=== PATIENT | male | born 1975 | race Caucasian/White ===

== ENCOUNTER 2021-08-04 10:43 | Inpatient (IN) | payer OTHER ==
[2021-08-04] MEDS ORDERED: chlordiazePOXIDE HCL 25 MG CAPSULE PO PRN (11:38)
[2021-08-04] MEDS ORDERED: ACETAMINOPHEN 325 MG TABLET (FP) PO PRN ×2 (11:38)
[2021-08-04] MEDS ORDERED: MENTHOL/PHENOL 1 EACH UD MM PRN (11:38)
[2021-08-04] MEDS ORDERED: MAGNESIUM HYDROX 2400MG/30ML ORAL SUSPENSION 30 ML CUP PO PRN (11:38)
[2021-08-04] MEDS ORDERED: MAGNESIUM CITRATE 300 ML BOTTLE PO PRN (11:38)
[2021-08-04] MEDS ORDERED: BISMUTH SUBSALICYLATE 262 MG/15 ML BTL PO PRN (11:38)
[2021-08-04] MEDS ORDERED: NICOTINE 10 MG CARTRIDGE (INHALER) IH PRN (11:38)
[2021-08-04] MEDS ORDERED: MAG HYDROX/AL HYDROX/SIMETH 30 ML UNIT-DOSE CUP PO PRN (11:38)
[2021-08-04] MEDS ORDERED: ONDANSETRON *ODT* 4 MG TABLET SL PRN (11:38)
[2021-08-04 12:15] VITALS: BMI 29.6
[2021-08-04] MEDS: PRENATAL VITAMINS W/ FOLIC ACID TABLET (FP) PO SCH (13:18)
[2021-08-04] MEDS: hydrOXYzine PAMOATE 25 MG CAPSULE (FP) PO SCH ×3 (13:18→22:21)
[2021-08-04] MEDS: METHOCARBAMOL 500 MG TABLET PO PRN (13:18)
[2021-08-04] MEDS: NICOTINE 21 MG/24 HOURS TOPICAL PATCH TD SCH (13:21)
[2021-08-04 17:41] LABS: ALBUMIN 3.5 g/dl (3.4-5.0); BLOOD UREA NITROGEN 14.2 mg/dL (7-18); CALCIUM 8.7 mg/dL (8.5-10.1)
[2021-08-04 17:44] LABS: CREATININE 1.3 mg/dL (0.55-1.3)
[2021-08-04 17:46] LABS: BILIRUBIN,TOTAL 0.4 mg/dL (0.2-1); TOT PROT 7.8 g/dl (6.4-8.2)
[2021-08-04] MEDS: chlordiazePOXIDE HCL 25 MG CAPSULE PO SCH ×2 (17:54→22:21)
[2021-08-04 18:03] LABS: HEMATOCRIT 41.9 % (35.4-49); MCH 30.1 pg (25.7-33.7); MCHC 33.4 g/dl (32.0-35.9); MEAN PLT VOLUME 8.3 fl (7.5-11.1); PLATELET COUNT 237 10^3/uL (134-434); RBC 4.66 M/mm3 (4.00-5.60); RDW 13.4 % (11.9-15.9); WHITE BLOOD COUNT 7.4 K/mm3 (4.0-10.0)
[2021-08-04] MEDS ORDERED: SUVOREXANT 10 MG TABLET PO PRN (22:00)
[2021-08-04] MEDS ORDERED: MELATONIN 5 MG TABLETS PO SCH (22:00)
[2021-08-04] MEDS: THIAMINE HCL 100 MG TABLET (FP) PO SCH (22:20)
[2021-08-05] MEDS: chlordiazePOXIDE HCL 25 MG CAPSULE PO SCH ×2 (06:48→10:50)
[2021-08-05] MEDS: hydrOXYzine PAMOATE 25 MG CAPSULE (FP) PO SCH (06:48)
[2021-08-05] MEDS ORDERED: methaDONE HCL 10 MG TABLET PO SCH (09:15)
[2021-08-05] MEDS ORDERED: methaDONE HCL 40 MG DISPERSABLE TABLET ONE (09:35)
[2021-08-05] MEDS ORDERED: methaDONE HCL 10 MG TABLET ONE (09:35)
[2021-08-05] MEDS: IBUPROFEN 400 MG TABLET (FP) PO PRN (10:36)
[2021-08-05] MEDS: METHOCARBAMOL 500 MG TABLET PO PRN (10:36)
[2021-08-05] MEDS: PRENATAL VITAMINS W/ FOLIC ACID TABLET (FP) PO SCH (10:36)
[2021-08-05] MEDS: NICOTINE 21 MG/24 HOURS TOPICAL PATCH TD SCH (10:50)
[2021-08-05] MEDS ORDERED: LORazepam 1 MG TABLET PO PRN (13:18)
[2021-08-05] MEDS: MINERAL OIL/PETROLAT/WATER TOPICAL CREAM 113 GM JAR TP SCH ×2 (15:33→23:16)
[2021-08-05] MEDS: LORazepam 2 MG TABLET PO SCH ×2 (18:29→23:14)
[2021-08-05] MEDS: THIAMINE HCL 100 MG TABLET (FP) PO SCH (23:14)
[2021-08-06] MEDS ORDERED: methaDONE HCL 10 MG TABLET ONE (03:57)
[2021-08-06] MEDS ORDERED: methaDONE HCL 40 MG DISPERSABLE TABLET ONE (03:58)
[2021-08-06] MEDS ORDERED: chlordiazePOXIDE HCL 25 MG CAPSULE PO SCH (05:00)
[2021-08-06] MEDS: LORazepam 2 MG TABLET PO SCH ×4 (05:17→22:29)
[2021-08-06] MEDS: METHOCARBAMOL 500 MG TABLET PO PRN (05:18)
[2021-08-06] MEDS: PRENATAL VITAMINS W/ FOLIC ACID TABLET (FP) PO SCH (10:21)
[2021-08-06] MEDS: NICOTINE 21 MG/24 HOURS TOPICAL PATCH TD SCH (10:22)
[2021-08-06] MEDS: MINERAL OIL/PETROLAT/WATER TOPICAL CREAM 113 GM JAR TP SCH (10:23)
[2021-08-06 11:26] LABS: SGOT/AST 87 U/L (15-37); SGPT/ALT 151 U/L (13-61)
[2021-08-06] MEDS: THIAMINE HCL 100 MG TABLET (FP) PO SCH (22:29)
[2021-08-06] MEDS: IBUPROFEN 400 MG TABLET (FP) PO PRN (22:29)
[2021-08-07] MEDS ORDERED: chlordiazePOXIDE HCL 10 MG CAPSULE PO PRN
[2021-08-07] MEDS: MINERAL OIL/PETROLAT/WATER TOPICAL CREAM 113 GM JAR TP SCH ×3 (00:56→22:20)
[2021-08-07] MEDS ORDERED: methaDONE HCL 10 MG TABLET ONE (04:21)
[2021-08-07] MEDS ORDERED: methaDONE HCL 40 MG DISPERSABLE TABLET ONE (04:21)
[2021-08-07] MEDS ORDERED: chlordiazePOXIDE HCL 10 MG CAPSULE PO SCH (05:00)
[2021-08-07] MEDS: LORazepam 1 MG TABLET PO SCH ×4 (06:35→23:21)
[2021-08-07 10:07] LABS: SARS-CoV-2 NAA Not Detected (Not Detected)
[2021-08-07] MEDS: PRENATAL VITAMINS W/ FOLIC ACID TABLET (FP) PO SCH (10:54)
[2021-08-07] MEDS: METHOCARBAMOL 500 MG TABLET PO PRN ×2 (10:54→19:25)
[2021-08-07] MEDS: NICOTINE 21 MG/24 HOURS TOPICAL PATCH TD SCH (10:55)
[2021-08-07] MEDS: THIAMINE HCL 100 MG TABLET (FP) PO SCH (22:21)
[2021-08-07] MEDS: IBUPROFEN 400 MG TABLET (FP) PO PRN (23:23)
[2021-08-08] MEDS ORDERED: LORazepam 0.5 MG TABLET PO PRN
[2021-08-08] MEDS ORDERED: methaDONE HCL 10 MG TABLET ONE (04:12)
[2021-08-08] MEDS ORDERED: methaDONE HCL 40 MG DISPERSABLE TABLET ONE (04:13)
[2021-08-08] MEDS ORDERED: chlordiazePOXIDE HCL 10 MG CAPSULE PO SCH (05:00)
[2021-08-08] MEDS: LORazepam 0.5 MG TABLET PO SCH ×4 (05:50→23:36)
[2021-08-08] MEDS: PRENATAL VITAMINS W/ FOLIC ACID TABLET (FP) PO SCH (10:36)
[2021-08-08] MEDS: MINERAL OIL/PETROLAT/WATER TOPICAL CREAM 113 GM JAR TP SCH ×2 (10:36→23:34)
[2021-08-08] MEDS: NICOTINE 21 MG/24 HOURS TOPICAL PATCH TD SCH (10:36)
[2021-08-08] MEDS: THIAMINE HCL 100 MG TABLET (FP) PO SCH (23:35)
[2021-08-08] MEDS: LOPERAMIDE HCL 2 MG CAPSULE PO PRN (23:39)
[2021-08-09] MEDS ORDERED: methaDONE HCL 10 MG TABLET ONE (04:50)
[2021-08-09] MEDS ORDERED: methaDONE HCL 40 MG DISPERSABLE TABLET ONE (04:50)
[2021-08-09] MEDS ORDERED: chlordiazePOXIDE HCL 10 MG CAPSULE PO ONE (05:00)
[2021-08-09] MEDS ORDERED: LORazepam 0.5 MG TABLET PO ONE (05:00)
[2021-08-09] MEDS: LOPERAMIDE HCL 2 MG CAPSULE PO PRN (06:24)
[2021-08-09] MEDS: MINERAL OIL/PETROLAT/WATER TOPICAL CREAM 113 GM JAR TP SCH ×2 (10:34→22:08)
[2021-08-09] MEDS: NICOTINE 21 MG/24 HOURS TOPICAL PATCH TD SCH (10:39)
[2021-08-09] MEDS: METHOCARBAMOL 500 MG TABLET PO PRN (10:54)
[2021-08-09] MEDS: PRENATAL VITAMINS W/ FOLIC ACID TABLET (FP) PO SCH (10:54)
[2021-08-09] MEDS: IBUPROFEN 400 MG TABLET (FP) PO PRN (11:01)
[2021-08-09] MEDS: THIAMINE HCL 100 MG TABLET (FP) PO SCH (22:07)
[2021-08-10] MEDS ORDERED: methaDONE HCL 40 MG DISPERSABLE TABLET ONE (04:28)
[2021-08-10] MEDS ORDERED: methaDONE HCL 10 MG TABLET ONE (04:28)
[2021-08-10 10:03] VITALS: BP 110/60; PULSE 78; TEMP 97.3
[2021-08-10] MEDS: IBUPROFEN 400 MG TABLET (FP) PO PRN (10:18)
[2021-08-10] MEDS: PRENATAL VITAMINS W/ FOLIC ACID TABLET (FP) PO SCH (10:18)
[2021-08-10] MEDS: NICOTINE 21 MG/24 HOURS TOPICAL PATCH TD SCH (10:19)
[2021-08-10] MEDS: MINERAL OIL/PETROLAT/WATER TOPICAL CREAM 113 GM JAR TP SCH (10:20)
== END 2021-08-10 11:22 | disposition other institution (70) | DRG 773 ==
LOC: YASAS 10:43 → Y6N 12:35
PROVIDERS: ADMIT Allergy & Immunology; ATTEND Allergy & Immunology
PROC: HZ2ZZZZ Detoxification Services for Substance Abuse Treatment (ICD-10-PCS; principal; 2021-08-04)
DX: F11.23 Opioid dependence with withdrawal (principal); F10.230 Alcohol dependence with withdrawal, uncomplicated; F14.20 Cocaine dependence, uncomplicated; F17.210 Nicotine dependence, cigarettes, uncomplicated; F19.280 Other psychoactive substance dependence with psychoactive substance-induced anxiety disorder; F19.282 Other psychoactive substance dependence with psychoactive substance-induced sleep disorder; F39 Unspecified mood [affective] disorder; F41.9 Anxiety disorder, unspecified; R74.01 Elevation of levels of liver transaminase levels
CPT/HCPCS: 36415; 80053; 84450; 84460; 85027; 86780; 93005; 93010; C9803-CS; Q0162; U0003; U0005

== ENCOUNTER 2021-08-10 11:26 | Inpatient (IN) | payer OTHER ==
[2021-08-10] MEDS ORDERED: MAGNESIUM HYDROX 2400MG/30ML ORAL SUSPENSION 30 ML CUP PO PRN (14:57)
[2021-08-10] MEDS ORDERED: guaiFENesin 200 MG/10 ML 10 ML UNIT-DOSE CUPS PO PRN (14:57)
[2021-08-10] MEDS ORDERED: MAG HYDROX/AL HYDROX/SIMETH 30 ML UNIT-DOSE CUP PO PRN (14:57)
[2021-08-10] MEDS ORDERED: P-EPHED 60MG/TRIPROLIDI 2.5MG TABLET PO PRN (14:57)
[2021-08-10] MEDS ORDERED: ACETAMINOPHEN 325 MG TABLET (FP) PO PRN (14:57)
[2021-08-10] MEDS ORDERED: MAGNESIUM CITRATE 300 ML BOTTLE PO PRN (14:57)
[2021-08-10] MEDS ORDERED: MENTHOL/PHENOL 1 EACH UD MM PRN (14:57)
[2021-08-10] MEDS ORDERED: hydrOXYzine PAMOATE 25 MG CAPSULE (FP) PO SCH (18:00)
[2021-08-10] MEDS: LOPERAMIDE HCL 2 MG CAPSULE PO PRN (18:12)
[2021-08-10] MEDS: hydrOXYzine PAMOATE 25 MG CAPSULE (FP) PO PRN (21:34)
[2021-08-10] MEDS: MELATONIN 5 MG TABLETS PO SCH (21:34)
[2021-08-10] MEDS: THIAMINE HCL 100 MG TABLET (FP) PO SCH (21:34)
[2021-08-10] MEDS: MINERAL OIL/PETROLAT/WATER TOPICAL CREAM 113 GM JAR TP SCH (21:35)
[2021-08-11] MEDS ORDERED: methaDONE HCL 40 MG DISPERSABLE TABLET ONE (05:23)
[2021-08-11] MEDS ORDERED: methaDONE HCL 10 MG TABLET ONE (05:23)
[2021-08-11] MEDS ORDERED: methaDONE HCL 40 MG DISPERSABLE TABLET PO SCH (06:00)
[2021-08-11] MEDS ORDERED: NICOTINE 7 MG/24 HOURS TOPICAL PATCH TD SCH (10:00)
[2021-08-11] MEDS: PRENATAL VITAMINS W/ FOLIC ACID TABLET (FP) PO SCH (10:24)
[2021-08-11] MEDS: MINERAL OIL/PETROLAT/WATER TOPICAL CREAM 113 GM JAR TP SCH ×2 (10:24→21:18)
[2021-08-11] MEDS: LOPERAMIDE HCL 2 MG CAPSULE PO PRN (10:25)
[2021-08-11] MEDS: IBUPROFEN 400 MG TABLET (FP) PO PRN ×2 (10:25→21:17)
[2021-08-11] MEDS: THIAMINE HCL 100 MG TABLET (FP) PO SCH (21:17)
[2021-08-11] MEDS: MELATONIN 5 MG TABLETS PO SCH (21:17)
[2021-08-12] MEDS ORDERED: methaDONE HCL 10 MG TABLET ONE (05:43)
[2021-08-12] MEDS ORDERED: methaDONE HCL 40 MG DISPERSABLE TABLET ONE (05:44)
[2021-08-12] MEDS: IBUPROFEN 400 MG TABLET (FP) PO PRN ×2 (08:43→16:36)
[2021-08-12] MEDS: MINERAL OIL/PETROLAT/WATER TOPICAL CREAM 113 GM JAR TP SCH ×2 (11:15→21:18)
[2021-08-12] MEDS: PRENATAL VITAMINS W/ FOLIC ACID TABLET (FP) PO SCH (11:16)
[2021-08-12] MEDS: NICOTINE 10 MG CARTRIDGE (INHALER) IH PRN (12:14)
[2021-08-12] MEDS: THIAMINE HCL 100 MG TABLET (FP) PO SCH (21:18)
[2021-08-12] MEDS: MELATONIN 5 MG TABLETS PO SCH (21:18)
[2021-08-13] MEDS ORDERED: methaDONE HCL 10 MG TABLET ONE (03:46)
[2021-08-13] MEDS ORDERED: methaDONE HCL 40 MG DISPERSABLE TABLET ONE (03:46)
[2021-08-13] MEDS: PRENATAL VITAMINS W/ FOLIC ACID TABLET (FP) PO SCH (10:24)
[2021-08-13] MEDS: MINERAL OIL/PETROLAT/WATER TOPICAL CREAM 113 GM JAR TP SCH ×2 (10:24→21:17)
[2021-08-13] MEDS: IBUPROFEN 400 MG TABLET (FP) PO PRN (11:16)
[2021-08-13] MEDS: SERTRALINE HCL 50 MG TABLET (FP) PO SCH (14:24)
[2021-08-13] MEDS: MELATONIN 5 MG TABLETS PO SCH (21:16)
[2021-08-13] MEDS: THIAMINE HCL 100 MG TABLET (FP) PO SCH (21:16)
[2021-08-13] MEDS: QUEtiapine FUMARATE 100 MG TABLET (FP) PO SCH (21:16)
[2021-08-13] MEDS ORDERED: SUVOREXANT 10 MG TABLET PO PRN (22:00)
[2021-08-14] MEDS ORDERED: methaDONE HCL 10 MG TABLET ONE (04:02)
[2021-08-14] MEDS ORDERED: methaDONE HCL 40 MG DISPERSABLE TABLET ONE (04:03)
[2021-08-14] MEDS: MINERAL OIL/PETROLAT/WATER TOPICAL CREAM 113 GM JAR TP SCH ×2 (10:43→21:39)
[2021-08-14] MEDS: SERTRALINE HCL 50 MG TABLET (FP) PO SCH (10:43)
[2021-08-14] MEDS: PRENATAL VITAMINS W/ FOLIC ACID TABLET (FP) PO SCH (10:43)
[2021-08-14 16:08] LABS: SARS-CoV-2 NAA Not Detected (Not Detected)
[2021-08-14] MEDS: IBUPROFEN 400 MG TABLET (FP) PO PRN (17:35)
[2021-08-14] MEDS: QUEtiapine FUMARATE 100 MG TABLET (FP) PO SCH (21:40)
[2021-08-14] MEDS: THIAMINE HCL 100 MG TABLET (FP) PO SCH (21:40)
[2021-08-14] MEDS: MELATONIN 5 MG TABLETS PO SCH (21:40)
[2021-08-15] MEDS ORDERED: methaDONE HCL 10 MG TABLET ONE (03:57)
[2021-08-15] MEDS ORDERED: methaDONE HCL 40 MG DISPERSABLE TABLET ONE (03:57)
[2021-08-15] MEDS: PRENATAL VITAMINS W/ FOLIC ACID TABLET (FP) PO SCH (10:16)
[2021-08-15] MEDS: SERTRALINE HCL 50 MG TABLET (FP) PO SCH (10:16)
[2021-08-15] MEDS: MINERAL OIL/PETROLAT/WATER TOPICAL CREAM 113 GM JAR TP SCH ×2 (10:17→21:08)
[2021-08-15] MEDS: NICOTINE 10 MG CARTRIDGE (INHALER) IH PRN (10:17)
[2021-08-15] MEDS: MELATONIN 5 MG TABLETS PO SCH (21:09)
[2021-08-15] MEDS: THIAMINE HCL 100 MG TABLET (FP) PO SCH (21:10)
[2021-08-15] MEDS: QUEtiapine FUMARATE 100 MG TABLET (FP) PO SCH (21:10)
[2021-08-16] MEDS ORDERED: methaDONE HCL 10 MG TABLET ONE (05:33)
[2021-08-16] MEDS ORDERED: methaDONE HCL 40 MG DISPERSABLE TABLET ONE (05:33)
[2021-08-16] MEDS: SERTRALINE HCL 50 MG TABLET (FP) PO SCH (09:30)
[2021-08-16] MEDS: PRENATAL VITAMINS W/ FOLIC ACID TABLET (FP) PO SCH (09:30)
[2021-08-16] MEDS: MINERAL OIL/PETROLAT/WATER TOPICAL CREAM 113 GM JAR TP SCH ×2 (09:30→21:05)
[2021-08-16] MEDS: THIAMINE HCL 100 MG TABLET (FP) PO SCH (21:04)
[2021-08-16] MEDS: QUEtiapine FUMARATE 100 MG TABLET (FP) PO SCH (21:04)
[2021-08-16] MEDS: MELATONIN 5 MG TABLETS PO SCH (21:04)
[2021-08-16] MEDS ORDERED: SUVOREXANT 10 MG TABLET PO PRN (22:00)
[2021-08-17] MEDS ORDERED: methaDONE HCL 10 MG TABLET ONE (04:04)
[2021-08-17] MEDS ORDERED: methaDONE HCL 40 MG DISPERSABLE TABLET ONE (04:04)
[2021-08-17] MEDS: PRENATAL VITAMINS W/ FOLIC ACID TABLET (FP) PO SCH (11:32)
[2021-08-17] MEDS: SERTRALINE HCL 50 MG TABLET (FP) PO SCH (11:32)
[2021-08-17] MEDS: MINERAL OIL/PETROLAT/WATER TOPICAL CREAM 113 GM JAR TP SCH ×2 (11:32→21:54)
[2021-08-17] MEDS: hydrOXYzine PAMOATE 25 MG CAPSULE (FP) PO PRN (14:43)
[2021-08-17] MEDS: QUEtiapine FUMARATE 100 MG TABLET (FP) PO SCH (21:54)
[2021-08-17] MEDS: THIAMINE HCL 100 MG TABLET (FP) PO SCH (21:54)
[2021-08-17] MEDS: MELATONIN 5 MG TABLETS PO SCH (21:54)
[2021-08-18] MEDS ORDERED: methaDONE HCL 40 MG DISPERSABLE TABLET ONE (03:47)
[2021-08-18] MEDS ORDERED: methaDONE HCL 10 MG TABLET ONE (03:47)
[2021-08-18] MEDS: IBUPROFEN 400 MG TABLET (FP) PO PRN (06:16)
[2021-08-18] MEDS: PRENATAL VITAMINS W/ FOLIC ACID TABLET (FP) PO SCH (10:59)
[2021-08-18] MEDS: SERTRALINE HCL 50 MG TABLET (FP) PO SCH (10:59)
[2021-08-18] MEDS: MINERAL OIL/PETROLAT/WATER TOPICAL CREAM 113 GM JAR TP SCH ×2 (10:59→21:05)
[2021-08-18] MEDS: hydrOXYzine PAMOATE 25 MG CAPSULE (FP) PO PRN (13:35)
[2021-08-18] MEDS: THIAMINE HCL 100 MG TABLET (FP) PO SCH (21:04)
[2021-08-18] MEDS: MELATONIN 5 MG TABLETS PO SCH (21:04)
[2021-08-18] MEDS: QUEtiapine FUMARATE 100 MG TABLET (FP) PO SCH (21:04)
[2021-08-19] MEDS ORDERED: methaDONE HCL 40 MG DISPERSABLE TABLET ONE (03:50)
[2021-08-19] MEDS ORDERED: methaDONE HCL 10 MG TABLET ONE (03:50)
[2021-08-19] MEDS: SERTRALINE HCL 50 MG TABLET (FP) PO SCH (09:37)
[2021-08-19] MEDS: MINERAL OIL/PETROLAT/WATER TOPICAL CREAM 113 GM JAR TP SCH ×2 (09:37→21:26)
[2021-08-19] MEDS: PRENATAL VITAMINS W/ FOLIC ACID TABLET (FP) PO SCH (09:37)
[2021-08-19] MEDS: hydrOXYzine PAMOATE 25 MG CAPSULE (FP) PO PRN (09:37)
[2021-08-19 10:07] LABS: ALBUMIN 3.2 g/dl (3.4-5.0); BLOOD UREA NITROGEN 10.7 mg/dL (7-18); CALCIUM 8.9 mg/dL (8.5-10.1)
[2021-08-19 10:10] LABS: CREATININE 1.1 mg/dL (0.55-1.3)
[2021-08-19 10:12] LABS: BILIRUBIN,TOTAL 0.6 mg/dL (0.2-1); TOT PROT 7.6 g/dl (6.4-8.2)
[2021-08-19] MEDS ORDERED: INSULIN (NOVOLOG) ASPART 100 UNITS/ML 10ML VIAL SQ ONE (11:14)
[2021-08-19] MEDS: INSULIN SLIDING SCALE (NOVOLOG) 1 VIAL SQ SCH ×2 (16:38→21:11)
[2021-08-19] MEDS: THIAMINE HCL 100 MG TABLET (FP) PO SCH (21:25)
[2021-08-19] MEDS: MELATONIN 5 MG TABLETS PO SCH (21:25)
[2021-08-19] MEDS: SUVOREXANT 10 MG TABLET PO PRN (21:26)
[2021-08-19] MEDS: QUEtiapine FUMARATE 100 MG TABLET (FP) PO SCH (21:26)
[2021-08-20] MEDS ORDERED: methaDONE HCL 10 MG TABLET ONE (02:00)
[2021-08-20] MEDS ORDERED: methaDONE HCL 40 MG DISPERSABLE TABLET ONE (02:00)
[2021-08-20] MEDS: INSULIN SLIDING SCALE (NOVOLOG) 1 VIAL SQ SCH ×4 (06:00→21:29)
[2021-08-20] MEDS: SERTRALINE HCL 50 MG TABLET (FP) PO SCH (10:25)
[2021-08-20] MEDS: PRENATAL VITAMINS W/ FOLIC ACID TABLET (FP) PO SCH (10:25)
[2021-08-20] MEDS: hydrOXYzine PAMOATE 25 MG CAPSULE (FP) PO PRN (10:25)
[2021-08-20] MEDS: MINERAL OIL/PETROLAT/WATER TOPICAL CREAM 113 GM JAR TP SCH ×2 (10:26→22:09)
[2021-08-20] MEDS: metFORMIN HCL 500 MG TABLET (FP) PO SCH (16:36)
[2021-08-20] MEDS: SUVOREXANT 10 MG TABLET PO PRN (21:28)
[2021-08-20] MEDS: MELATONIN 5 MG TABLETS PO SCH (21:28)
[2021-08-20] MEDS: THIAMINE HCL 100 MG TABLET (FP) PO SCH (21:28)
[2021-08-20] MEDS: QUEtiapine FUMARATE 100 MG TABLET (FP) PO SCH (21:28)
[2021-08-21] MEDS ORDERED: methaDONE HCL 40 MG DISPERSABLE TABLET ONE (03:04)
[2021-08-21] MEDS ORDERED: methaDONE HCL 10 MG TABLET ONE (03:04)
[2021-08-21] MEDS: metFORMIN HCL 500 MG TABLET (FP) PO SCH ×2 (06:03→16:50)
[2021-08-21] MEDS: INSULIN SLIDING SCALE (NOVOLOG) 1 VIAL SQ SCH ×4 (06:04→21:04)
[2021-08-21] MEDS: MINERAL OIL/PETROLAT/WATER TOPICAL CREAM 113 GM JAR TP SCH ×2 (09:51→22:06)
[2021-08-21] MEDS: SERTRALINE HCL 50 MG TABLET (FP) PO SCH (09:51)
[2021-08-21] MEDS: PRENATAL VITAMINS W/ FOLIC ACID TABLET (FP) PO SCH (09:51)
[2021-08-21] MEDS: NICOTINE 10 MG CARTRIDGE (INHALER) IH PRN (12:34)
[2021-08-21] MEDS: SUVOREXANT 10 MG TABLET PO PRN (21:01)
[2021-08-21] MEDS: QUEtiapine FUMARATE 100 MG TABLET (FP) PO SCH (21:03)
[2021-08-21] MEDS: MELATONIN 5 MG TABLETS PO SCH (21:03)
[2021-08-21] MEDS: THIAMINE HCL 100 MG TABLET (FP) PO SCH (21:03)
[2021-08-22] MEDS ORDERED: methaDONE HCL 10 MG TABLET ONE (04:08)
[2021-08-22] MEDS ORDERED: methaDONE HCL 40 MG DISPERSABLE TABLET ONE (04:08)
[2021-08-22] MEDS: metFORMIN HCL 500 MG TABLET (FP) PO SCH ×2 (06:00→17:04)
[2021-08-22] MEDS: INSULIN SLIDING SCALE (NOVOLOG) 1 VIAL SQ SCH ×4 (07:46→21:10)
[2021-08-22] MEDS: SERTRALINE HCL 50 MG TABLET (FP) PO SCH (12:35)
[2021-08-22] MEDS: PRENATAL VITAMINS W/ FOLIC ACID TABLET (FP) PO SCH (12:35)
[2021-08-22] MEDS: MINERAL OIL/PETROLAT/WATER TOPICAL CREAM 113 GM JAR TP SCH ×2 (12:35→21:08)
[2021-08-22] MEDS: NICOTINE 10 MG CARTRIDGE (INHALER) IH PRN (13:01)
[2021-08-22] MEDS ORDERED: INSULIN SLIDING SCALE (NOVOLOG) 1 VIAL SQ ONE ×2 (17:05→22:04)
[2021-08-22] MEDS: THIAMINE HCL 100 MG TABLET (FP) PO SCH (21:07)
[2021-08-22] MEDS: QUEtiapine FUMARATE 100 MG TABLET (FP) PO SCH (21:07)
[2021-08-22] MEDS: MELATONIN 5 MG TABLETS PO SCH (21:08)
[2021-08-23] MEDS ORDERED: methaDONE HCL 40 MG DISPERSABLE TABLET ONE (04:00)
[2021-08-23] MEDS ORDERED: methaDONE HCL 10 MG TABLET ONE (04:00)
[2021-08-23] MEDS: metFORMIN HCL 500 MG TABLET (FP) PO SCH ×2 (06:14→18:58)
[2021-08-23] MEDS: INSULIN SLIDING SCALE (NOVOLOG) 1 VIAL SQ SCH ×4 (06:14→21:52)
[2021-08-23] MEDS: hydrOXYzine PAMOATE 25 MG CAPSULE (FP) PO PRN (10:19)
[2021-08-23] MEDS: SERTRALINE HCL 50 MG TABLET (FP) PO SCH (10:19)
[2021-08-23] MEDS: PRENATAL VITAMINS W/ FOLIC ACID TABLET (FP) PO SCH (10:19)
[2021-08-23] MEDS: MINERAL OIL/PETROLAT/WATER TOPICAL CREAM 113 GM JAR TP SCH ×2 (10:20→21:51)
[2021-08-23] MEDS ORDERED: INSULIN (LEVEMIR) 100 UNITS/ML UNITS SQ ONE (12:47)
[2021-08-23] MEDS: MELATONIN 5 MG TABLETS PO SCH (21:51)
[2021-08-23] MEDS: QUEtiapine FUMARATE 100 MG TABLET (FP) PO SCH (21:52)
[2021-08-23] MEDS: THIAMINE HCL 100 MG TABLET (FP) PO SCH (21:53)
[2021-08-23] MEDS: SUVOREXANT 10 MG TABLET PO PRN (21:54)
[2021-08-24] MEDS ORDERED: methaDONE HCL 40 MG DISPERSABLE TABLET ONE (04:03)
[2021-08-24] MEDS ORDERED: methaDONE HCL 10 MG TABLET ONE (04:03)
[2021-08-24] MEDS: INSULIN SLIDING SCALE (NOVOLOG) 1 VIAL SQ SCH ×4 (06:07→21:04)
[2021-08-24] MEDS: metFORMIN HCL 500 MG TABLET (FP) PO SCH ×2 (06:07→16:27)
[2021-08-24] MEDS: MINERAL OIL/PETROLAT/WATER TOPICAL CREAM 113 GM JAR TP SCH ×2 (10:05→21:05)
[2021-08-24] MEDS: SERTRALINE HCL 50 MG TABLET (FP) PO SCH (10:05)
[2021-08-24] MEDS: PRENATAL VITAMINS W/ FOLIC ACID TABLET (FP) PO SCH (10:05)
[2021-08-24] MEDS: IBUPROFEN 400 MG TABLET (FP) PO PRN (10:06)
[2021-08-24] MEDS ORDERED: INSULIN SLIDING SCALE (NOVOLOG) 1 VIAL SQ ONE (11:41)
[2021-08-24] MEDS: MELATONIN 5 MG TABLETS PO SCH (21:04)
[2021-08-24] MEDS: SUVOREXANT 10 MG TABLET PO PRN (21:04)
[2021-08-24] MEDS: THIAMINE HCL 100 MG TABLET (FP) PO SCH (21:04)
[2021-08-24] MEDS: QUEtiapine FUMARATE 100 MG TABLET (FP) PO SCH (21:04)
[2021-08-25] MEDS ORDERED: methaDONE HCL 10 MG TABLET ONE (02:09)
[2021-08-25] MEDS ORDERED: methaDONE HCL 40 MG DISPERSABLE TABLET ONE (02:10)
[2021-08-25] MEDS: metFORMIN HCL 500 MG TABLET (FP) PO SCH ×2 (06:06→16:41)
[2021-08-25] MEDS: INSULIN SLIDING SCALE (NOVOLOG) 1 VIAL SQ SCH ×4 (06:13→21:01)
[2021-08-25] MEDS: MINERAL OIL/PETROLAT/WATER TOPICAL CREAM 113 GM JAR TP SCH ×2 (10:20→21:01)
[2021-08-25] MEDS: SERTRALINE HCL 50 MG TABLET (FP) PO SCH (10:20)
[2021-08-25] MEDS: PRENATAL VITAMINS W/ FOLIC ACID TABLET (FP) PO SCH (10:20)
[2021-08-25] MEDS: IBUPROFEN 400 MG TABLET (FP) PO PRN (10:21)
[2021-08-25] MEDS: MELATONIN 5 MG TABLETS PO SCH (21:00)
[2021-08-25] MEDS: SUVOREXANT 10 MG TABLET PO PRN (21:00)
[2021-08-25] MEDS: THIAMINE HCL 100 MG TABLET (FP) PO SCH (21:00)
[2021-08-25] MEDS: QUEtiapine FUMARATE 100 MG TABLET (FP) PO SCH (21:00)
[2021-08-26] MEDS ORDERED: methaDONE HCL 40 MG DISPERSABLE TABLET ONE (04:02)
[2021-08-26] MEDS ORDERED: methaDONE HCL 10 MG TABLET ONE (04:02)
[2021-08-26] MEDS: metFORMIN HCL 500 MG TABLET (FP) PO SCH ×2 (06:12→16:55)
[2021-08-26] MEDS: INSULIN SLIDING SCALE (NOVOLOG) 1 VIAL SQ SCH ×4 (06:16→21:25)
[2021-08-26] MEDS: PRENATAL VITAMINS W/ FOLIC ACID TABLET (FP) PO SCH (10:43)
[2021-08-26] MEDS: IBUPROFEN 400 MG TABLET (FP) PO PRN (10:43)
[2021-08-26] MEDS: SERTRALINE HCL 50 MG TABLET (FP) PO SCH (10:43)
[2021-08-26] MEDS: hydrOXYzine PAMOATE 25 MG CAPSULE (FP) PO PRN (10:44)
[2021-08-26] MEDS: MINERAL OIL/PETROLAT/WATER TOPICAL CREAM 113 GM JAR TP SCH ×2 (10:47→21:25)
[2021-08-26] MEDS: MELATONIN 5 MG TABLETS PO SCH (21:24)
[2021-08-26] MEDS: THIAMINE HCL 100 MG TABLET (FP) PO SCH (21:24)
[2021-08-26] MEDS: QUEtiapine FUMARATE 100 MG TABLET (FP) PO SCH (21:25)
[2021-08-26] MEDS: SUVOREXANT 10 MG TABLET PO PRN (21:25)
[2021-08-27] MEDS ORDERED: methaDONE HCL 10 MG TABLET ONE (06:05)
[2021-08-27] MEDS ORDERED: methaDONE HCL 40 MG DISPERSABLE TABLET ONE (06:05)
[2021-08-27] MEDS: metFORMIN HCL 500 MG TABLET (FP) PO SCH ×2 (06:06→16:44)
[2021-08-27] MEDS: INSULIN SLIDING SCALE (NOVOLOG) 1 VIAL SQ SCH ×4 (06:08→21:03)
[2021-08-27 06:55] VITALS: TEMP 97.9
[2021-08-27] MEDS: PRENATAL VITAMINS W/ FOLIC ACID TABLET (FP) PO SCH (09:42)
[2021-08-27] MEDS: MINERAL OIL/PETROLAT/WATER TOPICAL CREAM 113 GM JAR TP SCH ×2 (09:42→21:01)
[2021-08-27] MEDS: SERTRALINE HCL 50 MG TABLET (FP) PO SCH (09:43)
[2021-08-27] MEDS: hydrOXYzine PAMOATE 25 MG CAPSULE (FP) PO PRN (09:43)
[2021-08-27 10:56] VITALS: BP 129/79; PULSE 100
[2021-08-27] MEDS: QUEtiapine FUMARATE 100 MG TABLET (FP) PO SCH (21:02)
[2021-08-27] MEDS: THIAMINE HCL 100 MG TABLET (FP) PO SCH (21:02)
[2021-08-27] MEDS: MELATONIN 5 MG TABLETS PO SCH (21:02)
[2021-08-28] MEDS ORDERED: methaDONE HCL 10 MG TABLET ONE (04:17)
[2021-08-28] MEDS ORDERED: methaDONE HCL 40 MG DISPERSABLE TABLET ONE (04:17)
[2021-08-28] MEDS: metFORMIN HCL 500 MG TABLET (FP) PO SCH (06:13)
[2021-08-28] MEDS: INSULIN SLIDING SCALE (NOVOLOG) 1 VIAL SQ SCH (06:17)
== END 2021-08-28 09:58 | disposition home or self-care (01) | DRG 772 ==
LOC: YASAS 11:26 → Y3W 11:27
PROVIDERS: ADMIT Allergy & Immunology; ATTEND Allergy & Immunology
PROC: HZ42ZZZ Group Counseling for Substance Abuse Treatment, Cognitive-Behavioral (ICD-10-PCS; principal; 2021-08-10)
DX: F10.20 Alcohol dependence, uncomplicated (principal); F11.20 Opioid dependence, uncomplicated; F14.20 Cocaine dependence, uncomplicated; F17.210 Nicotine dependence, cigarettes, uncomplicated; F31.9 Bipolar disorder, unspecified; F39 Unspecified mood [affective] disorder; B19.20 Unspecified viral hepatitis C without hepatic coma; E11.9 Type 2 diabetes mellitus without complications; Z79.84 Long term (current) use of oral hypoglycemic drugs; M54.31 Sciatica, right side; M54.32 Sciatica, left side; R94.5 Abnormal results of liver function studies; Z99.89 Dependence on other enabling machines and devices; Z56.0 Unemployment, unspecified; Z59.00 Homelessness unspecified; Z91.013 Allergy to seafood
CPT/HCPCS: 36415; 73090-TC-RT-FY; 73130-TC-RT-FY; 80053; 82962; 83036; 86803; 87522; C9803-CS; U0003; U0005